=== PATIENT | male | born 1945 ===

== ENCOUNTER 2018-04-11 14:00 | Outpatient (CLI) | payer MEDICARE, BC ==
--- NOTE | 2018-04-11 15:57 | ULT ---
THYROID ULTRASOUND: History: Thyroid nodule noted on a carotid ultrasound. FINDINGS: Real-time imaging of the right and left lobes of the gland were performed. The right lobe measures 1. 4 x 1.9 x 4.5 cm. The left lobe 1.4 x 1.9 x 5 cm. There are several small subcentimeter hypoechoic le sions identified. On the right side there is one that is 3 x 5 mm and another that is 4 x 6 cm, and o n the left a 5 mm nodule. There are probably other small nodules also noted with slight heterogeneity to areas of the gland. IMPRESSION: Tiny bilateral thyroid nodules. POS: YESSY
== END 2018-04-11 14:01 | disposition home or self-care (01) ==
LOC: BICULT 14:00
PROVIDERS: ATTEND Physician Assistant
DX: E04.1 Nontoxic single thyroid nodule (principal); E04.2 Nontoxic multinodular goiter
CPT/HCPCS: 76536

== ENCOUNTER 2020-05-18 13:42 | Inpatient (IN) | payer MEDICARE, BC ==
[2020-05-18] MEDS ORDERED: Nitroglycerin 2% Ointment 1 INCH/1 GM Packet ONE ×2 (14:09→17:20)
[2020-05-18] MEDS ORDERED: Aspirin Chewable 81 MG TAB ONE (14:09)
[2020-05-18 14:26] LABS: #Eosinphils 0.1 thou/uL (0.0-0.7); #Monocytes 0.7 thou/uL (0.11-0.59); #Neutrophils 6.1 thou/uL (1.40-6.50); %Basophils 0.2 % (0.0-1.0); %Lymphocytes 22.7 % (21.0-51.0); %Monocytes 7.4 % (0.0-10.0); %Neutrophils 68.6 % (42.0-75.0); Hemoglobin 14.5 g/dL (14.0-18.0); Mean Corpuscular HGB CONC 34.1 g/dL (32.0-36.0); Mean Corpuscular Volume 94.1 fL (78.0-98.0); Mean Platelet Volume 8.7 fL (7.4-10.4); Platelet Count 195 thou/uL (130-400); RBC Distribution Width 12.5 % (11.5-14.5); Red Blood Cell (RBC) Count 4.54 mill/uL (4.70-6.10); White Blood Cell (WBC) Count 8.8 thou/uL (4.8-10.8)
[2020-05-18 14:36] LABS: ALT (SGPT) 20 U/L (8-55); AST (SGOT) 13 U/L (5-34); Albumin 3.8 g/dL (3.4-4.8); Alkaline Phosphatase 75 U/L (40-110); Anion Gap 12 mmol/L (10-20); BUN (Urea Nitrogen) 14 mg/dL (8.4-25.7); Bilirubin, Total 1.9 mg/dL (0.2-1.2); Calc. Creatinine Clearance 0 mL/min (70-130); Calcium 8.9 mg/dL (7.8-10.44); Carbon Dioxide 32 mmol/L (23-31); Chloride 98 mmol/L (98-107); Globulin 2.9 g/dL (2.4-3.5); Glucose 173 mg/dL (83-110); Protein, Total 6.7 g/dL (5.8-8.1); Sodium 139 mmol/L (136-145)
--- NOTE | 2020-05-18 15:12 | RAD ---
Chest one view HISTORY: Dyspnea. Chest pain. COMPARISON: 03/21/2018. FINDINGS: Cardiac silhouette is magnified and enlarged. Pulmonary vasculature engorged with widesprea d reticulonodular interstitial prominence. No lobar consolidation or evidence of pneumothorax. IMPRESSION : Cardiomegaly with pulmonary vascular congestion. Correlate for CHF.
[2020-05-18] MEDS ORDERED: Potassium Chloride 20 MEQ TAB ONE (15:27)
[2020-05-18] MEDS ORDERED: hydrALAZINE 20 MG/ML VIAL ONE (15:32)
[2020-05-18 15:59] LABS: Bilirubin Negative (Negative); Blood, Urine Negative (Negative); Clarity Clear (Clear); Glucose, Urine (Dipstick) Normal (Negative); Ketone, Urine Negative (Negative); Leukocyte Negative Leu/uL (Negative); Nitrite Negative (Negative); Protein, Urine (Dipstick) Negative (Neg-Trace); Urobilinogen 6 mg/dL (Less than 2)
[2020-05-18] MEDS ORDERED: DOBUTamine 500 mg/250 ml 250 ML ONE (16:17)
[2020-05-18] MEDS ORDERED: Enalaprilat Dihydrate 1.25 MG/ML VIAL SLOW IVP PRN ×2 (16:42→21:53)
[2020-05-18] MEDS ORDERED: Furosemide 20 MG/2 ML VIAL ONE (17:20)
[2020-05-18 17:26] LABS: Troponin I 0.013 ng/mL (< 0.028)
[2020-05-18] MEDS ORDERED: Acetaminophen 325 MG TAB ONE (20:12)
[2020-05-18 20:49] LABS: Troponin I Less than 0.010 ng/mL (< 0.028)
--- NOTE | 2020-05-18 21:51 | HP ---
PRIMARY CARE PHYSICIAN: Dr. Bryon Smith. CHIEF COMPLAINT: Having heavy breathing and can barely sleep. HISTORY OF PRESENT ILLNESS: Mr. Kline is a pleasant 74-year-old gentleman, who has a history of hypertension, also has a history of previous stroke and atrial fibrillation. He says that on Wednesday, he noticed that when he was walking from his car to the office, he was breathing very heavy, and this was abnormal for him. Then, later on that evening, when he was trying to sleep, he says that he woke up several times with difficulty breathing. He says this went off and on throughout the night. He also noted that he was having some hurting around his lower abdomen or diaphragm area, and he says that he took his blood pressure and noticed that it was "sandra-high." He investigated his medications and noted that he had misplaced the lisinopril in the pill bottle containers and had not taken his lisinopril in over 2 weeks. He says that he corrected this mistake and started taking the lisinopril and his Aldactone as well, but noticed that they did not really help his blood pressure much. His blood pressure still remained high. He was still short of breath, and as a result, he came to the emergency room for evaluation. In the ER, he was found to be in atrial fibrillation with a variable heart rate. He also had a chest x-ray done, which showed some cardiomegaly and changes consistent with heart failure, and his proBNP was elevated. For this reason, he is being admitted for further evaluation. The patient sees Dr. Paulino and says that he has had a stress test within the last year and also says he has had an echocardiogram. He believes that his echo was "normal." He denies any leg pain or leg swelling. No nausea, no vomiting, no diaphoresis, but it is to note that he has had a Chelsea fundoplication. REVIEW OF SYSTEMS: All systems were reviewed and are negative except for that mentioned in the history of present illness. PAST MEDICAL HISTORY: Significant for hypertension, previous cerebrovascular accident 20 years ago, atrial fibrillation, kidney stone, gastroesophageal reflux disease. PAST SURGICAL HISTORY: He had bilateral knee surgery. He has had a Chelsea fundoplication in 1996 and a vasectomy. ALLERGIES: NO KNOWN DRUG ALLERGIES. SOCIAL HISTORY: He is , has 2 children. He is a nonsmoker. He says he drinks weekly. He would like to be a full code, but says he would not want to be on a ventilator or "on life support for a long time." FAMILY HISTORY: Father at 98. Brother had some type of liver disease, which he says is X-link inherited. He says he was tested for it, but does not have it. CURRENT MEDICATIONS: Include: 1. Toprol-XL 100 mg daily. 2. Atorvastatin 40 mg daily. 3. Eliquis 5 mg twice a day. 4. Lisinopril 40 mg daily. 5. Spironolactone 25 mg daily. 6. Chlorthalidone 12.5 mg once a day. PHYSICAL EXAMINATION: GENERAL: He is alert and oriented. He does appear to be in some mild distress, more an apprehension. He is well developed, but morbidly obese. VITAL SIGNS: Blood pressure was 156/106. His heart rate is ranging from 40 to about 65, respiratory rate of 16, temperature is 98.1, O2 saturation is 96% on room air. HEENT: Pupils are equal, round, and reactive. Extraocular muscles are intact. Sclerae are anicteric. Throat, there is no erythema, no exudates. NECK: No adenopathy. No bruits. LUNGS: Clear to auscultation. There was no wheezing, no rales, no rhonchi. CARDIOVASCULAR: Heart rate is irregular and it is also slow. I did not appreciate any murmurs or rubs. ABDOMEN: Obese, soft, nontender, and nondistended. Positive for bowel sounds. No rebound. No guarding. EXTREMITIES: He has 1 to 2+ pitting edema bilaterally. No calf tenderness. No joint effusions. NEUROLOGIC: The exam is grossly nonfocal. SKIN AND INTEGUMENT: No skin changes. No rash. LABS AND IMAGING: EKG is by my reading, is in atrial fibrillation, the rate is around 70, there are no ST wave changes. Chest x-ray, he had cardiomegaly as well as bilateral pulmonary vascular congestion by my reading. On his lab results, white blood cell count is 8.8, hemoglobin 14.5, hematocrit is 42.7, platelet count is 195. Sodium 139, potassium 3.0, chloride is 98, CO2 is 32, BUN of 14, creatinine 0.93, glucose is 173. Total bili was 1.9. BNP was 296. Urinalysis is pending. ASSESSMENT AND PLAN: 1. This is a pleasant 74-year-old gentleman, who presents with what appears to be symptomatic bradycardia from atrial fibrillation. He is on Toprol. However, he appears to have symptoms, which are new and signs of overt failure. I have discussed this with the cio on-call, Dr. Ríos, and he has recommended starting him on a dobutamine drip to stabilize his heart rate. We will hold the beta blockers. He states that he has had a recent echo. Therefore, we will not repeat the echo unless it is needed, and further recommendations will be as per the Cardiology team. 2. Hypertension. We will hold off on any medications that will affect the AV node and continue with hydralazine or even Vasotec p.r.n. 3. Gastroesophageal reflux disease. He is status post Chelsea fundoplication. We will place him on a proton pump inhibitor and further recommendations to follow. Job ID: [id number]
[2020-05-18] MEDS ORDERED: Ondansetron ODT 4 MG TAB PO PRN (21:53)
[2020-05-18] MEDS ORDERED: Acetaminophen 325 MG TAB PO PRN (21:53)
[2020-05-18] MEDS ORDERED: Ondansetron PF 4 MG/2 ML Vial IVP PRN (21:53)
--- NOTE | 2020-05-18 21:55 | CON ---
DATE OF CONSULTATION: 05/18/2020 REASON FOR CONSULTATION: Symptomatic bradycardia, atrial fibrillation, diastolic heart failure, acute on chronic. PRIMARY CLINICAL SCIENCE LIAISON: Dr. Joshua Paulino. HISTORY OF PRESENT ILLNESS: Mr. Kline is a very pleasant 74-year-old gentleman who said in the last several days, he has been noticing more shortness of breath and feeling uncomfortable in his abdominal area. He also has "waves" of just something not feeling right "on the monitor." It correlates with some brief episodes of bradycardia and some accelerated idioventricular rhythms. The patient does not have any chest pain or pressure. It feels uncomfortable during these episodes of bradycardia. PAST MEDICAL HISTORY: He has chronic atrial fibrillation, previously normal left ventricular function, normal stress testing in the past. MEDICATIONS: At home are listed as; 1. Chlorthalidone 25 mg a day. 2. Spironolactone 25 mg a day. 3. Lisinopril 40 mg a day. 4. Toprol-XL (metoprolol succinate) 200 mg a day. He has been taking that at night, last dose at 9 p.m. last night. 5. Atorvastatin 40 mg a day. He is also taking Eliquis 5 mg twice a day. Echocardiogram done in 2018 showed an ejection fraction of 55% to 60%, mild tricuspid insufficiency. Stress testing done in 2018 showed no evidence of any ischemia. REVIEW OF SYSTEMS: CONSTITUTIONAL: He is very overweight, but no significant weight changes. VISION: No changes. HEARING: No changes. PULMONARY: No cough or wheezing. GASTROINTESTINAL: He said he has had a fundal plication. He has intermittent nausea, but is unable to vomit. It is a chronic finding for him. SKIN: No rashes. NEUROLOGIC: No unilateral weakness or numbness. PSYCHIATRIC: No unusual depression or anxiety. ALLERGIES: NONE KNOWN. SOCIAL HISTORY: No alcohol or tobacco abuse. PHYSICAL EXAMINATION: GENERAL: This is a pleasant, elderly gentleman, very overweight. Weight in the office was 330 pounds with height 6 feet 1 inch tall. VITAL SIGNS: Blood pressure is 160/80; pulse is usually in the 60s, sometimes drops lower in the 40s occasionally, but usually very briefly. NECK: Neck veins are normal. Carotid, normal upstrokes. LUNGS: Clear. CARDIAC: Irregularly irregular. ABDOMEN: Obese, nontender. EXTREMITIES: No clubbing or cyanosis. There is hsutolga-ja-brjolg edema. PERTINENT LABORATORY DATA: Potassium is 3.0. BNP is 296.8. EKG showed atrial fibrillation. No acute changes. Troponin 0.013. Chest x-ray shows pulmonary vascular congestion. ASSESSMENT: 1. Diastolic heart failure, acute on chronic. 2. Atrial fibrillation with a slow ventricular response. 3. Accelerated idioventricular rhythm, looks most like an escape rhythm. 4. Mild hypokalemia. 5. Hypertension. PLAN: 1. Begin intravenous dobutamine. 2. Stop metoprolol, it has a very long half-life, therefore probably going to be down tomorrow morning if the levels are significantly lower. 3. I agree with IV Vasotec to help with blood pressure. 4. Intravenous diuretic. 5. Increase spironolactone. We will follow with you. Job ID: [id number]
[2020-05-18] MEDS ORDERED: Apixaban 5 MG TAB PO SCH (22:15)
[2020-05-18] MEDS ORDERED: Atorvastatin Calcium 40 MG TAB PO SCH (22:15)
[2020-05-18] MEDS ORDERED: Spironolactone 25 MG TAB PO SCH (23:30)
[2020-05-19 03:23] LABS: #Eosinphils 0.1 thou/uL (0.0-0.7); #Lymphocytes 1.8 thou/uL (1.20-3.40); #Monocytes 1.1 thou/uL (0.11-0.59); #Neutrophils 6.9 thou/uL (1.40-6.50); %Basophils 0.3 % (0.0-1.0); %Eosinophils 0.6 % (0.0-10.0); %Monocytes 10.8 % (0.0-10.0); %Neutrophils 70.4 % (42.0-75.0); Hemoglobin 13.6 g/dL (14.0-18.0); Mean Corpuscular HGB CONC 33.6 g/dL (32.0-36.0); Mean Corpuscular Hemoglobin 31.2 pg (27.0-31.0); Mean Platelet Volume 8.3 fL (7.4-10.4); Platelet Count 198 thou/uL (130-400); RBC Distribution Width 12.5 % (11.5-14.5); Red Blood Cell (RBC) Count 4.36 mill/uL (4.70-6.10); White Blood Cell (WBC) Count 9.8 thou/uL (4.8-10.8)
[2020-05-19 03:41] LABS: Anion Gap 13 mmol/L (10-20); BUN (Urea Nitrogen) 13 mg/dL (8.4-25.7); Calc. Creatinine Clearance 0 mL/min (70-130); Calcium 8.8 mg/dL (7.8-10.44); Carbon Dioxide 31 mmol/L (23-31); Chloride 97 mmol/L (98-107); Glucose 124 mg/dL (83-110); Sodium 138 mmol/L (136-145)
[2020-05-19 03:54] LABS: Potassium 2.6 mmol/L (3.5-5.1)
[2020-05-19] MEDS ORDERED: Potassium Chloride 20 MEQ TAB PO SCH ×2 (04:30→12:00)
[2020-05-19] MEDS ORDERED: Potassium Chloride 20 MEQ TAB ONE ×2 (04:49→13:26)
[2020-05-19] MEDS ORDERED: DOBUTamine 500 mg/250 ml 250 ML ONE (04:56)
[2020-05-19] MEDS ORDERED: Potassium Chloride 40 MEQ in Sodium Chloride 0.9% 250 ML 250 ML IVPB SCH (08:00)
[2020-05-19 08:22] LABS: SARS-CoV-2 MS2 Positive; SARS-CoV-2 N Gene Negative; SARS-CoV-2 S Gene Negative; SARS-CoV-2 by NAA Not Detected (NotDetected); SARS-CoV-2 orf1ab Negative
[2020-05-19] MEDS ORDERED: Pantoprazole 40 MG VIAL ONE (08:40)
[2020-05-19] MEDS ORDERED: Pantoprazole 40 MG VIAL IVP SCH (09:00)
[2020-05-19] MEDS ORDERED: Magnesium 2 GM/50 ML 2 GM in Premix Bag 1 BAG IVPB SCH (09:45)
[2020-05-19] MEDS ORDERED: Magnesium 2 GM/50 ML BAG (IN WATER) ONE (10:21)
[2020-05-19] MEDS: Apixaban 5 MG TAB PO SCH ×2 (10:24→21:20)
--- NOTE | 2020-05-19 10:34 | PDOC.HOSPP ---
- Subjective Encounter Date: 05/19/20 Encounter Time: 10:28 Subjective: Mr. Kline was seen today in follow-up of bradycardia. He says he feels much better. He denies chest pain or upper abdominal discomfort. - Objective Result Diagrams: 05/19/20 03:12 05/19/20 03:12 Hospitalist ROS - Medication Medications: Active Medications Generic Name Dose Route Start Last Admin Trade Name Americoq PRN Reason Stop Dose Admin Apixaban 5 mg 05/19/20 09:00 05/19/20 10:24 Apixaban 5 Mg Tab PO 5 mg BID NIKKO Administration Potassium Chloride 40 meq/ 270 mls @ 67.5 mls/hr 05/19/20 08:00 05/19/20 10:15 Sodium Chloride IVPB 05/19/20 12:00 Not Given NOW NIKKO Magnesium Sulfate 2 gm/ Device 50 mls @ 100 mls/hr 05/19/20 09:45 05/19/20 10:24 IVPB 05/19/20 13:00 50 mls NOW NIKKO Administration - Exam Eye: PERRL, anicteric sclera Heart: no murmur, no gallops, no rubs, normal peripheral pulses, irregular Respiratory: CTAB, no wheezes, no rales, no ronchi, normal chest expansion, no tachypnea Gastrointestinal: soft, non-tender, non-distended, normal bowel sounds Extremities: no cyanosis, no edema Hosp A/P (1) Bradycardia Code(s): R00.1 - BRADYCARDIA, UNSPECIFIED Status: Acute (2) Hypertension Code(s): I10 - ESSENTIAL (PRIMARY) HYPERTENSION Status: Chronic (3) Obesity Code(s): E66.9 - OBESITY, UNSPECIFIED Status: Chronic (4) GERD (gastroesophageal reflux disease) Code(s): K21.9 - GASTRO-ESOPHAGEAL REFLUX DISEASE WITHOUT ESOPHAGITIS Status: Chronic - Plan * Symptomatic bradycardia- Mr. Kline is feeling better on the Dobutamine drip * Continue to hold Metoprolol, and await recommendations from Cardiology * AFIB- heart rate is better- continue Eliquis for DVT prophylaxis * Hypokalemia- Likely from renal losses- will replace- consider re-starting Losartan and spironolactone * Hypomagnesemia- replace * HTN- blood pressure is a bit better- continue Vasotec as needed-
[2020-05-19] MEDS ORDERED: Furosemide 40 MG/4 ML VIAL ONE (13:03)
[2020-05-19] MEDS ORDERED: Spironolactone 25 MG TAB PO SCH (13:15)
--- NOTE | 2020-05-19 13:51 | PRG ---
DATE OF SERVICE: 05/19/2020 SUBJECTIVE: Mr. Kline is feeling better today. He is still on dobutamine 5 mcg/kg/minute. We did decrease the dobutamine to 2.5 mcg/kg/minute and the heart rate dropped into the mid 50s and sometimes somewhat lower. OBJECTIVE: LUNGS: Clear. CARDIAC: Irregularly irregular. ABDOMEN: Soft, nontender. EXTREMITIES: Still moderate edema. LABORATORY DATA: Potassium is 2.6, this morning magnesium is 1.4. He has received potassium and magnesium. ASSESSMENT: 1. Diastolic heart failure, improving. 2. Atrial fibrillation with slow ventricular response, improving, but continues. PLAN: 1. Metoprolol succinate was stopped, but it has a very long half-life 24 hours. Therefore, probably will be tomorrow until the most of that medicine has actually gone. 2. Replete potassium. 3. Replete magnesium. 4. Probably will be able to wean off dobutamine tomorrow. Dr. Paulino will see the patient tomorrow. Also get spironolactone today to help with potassium and diuresis. He will get one dose of IV Lasix today. Job ID: [id number]
[2020-05-19 15:23] VITALS: BMI 41.9
[2020-05-19] MEDS ORDERED: Lisinopril 20 MG TAB PO SCH (16:00)
[2020-05-19] MEDS: DOBUTamine 500 mg/250 ml 500 MG in Premix Bag 1 BAG IVPB SCH (19:55)
[2020-05-19] MEDS: Escitalopram Oxalate 20 mg Tablet PO SCH (21:20)
[2020-05-19] MEDS: Atorvastatin Calcium 40 MG TAB PO SCH (21:20)
[2020-05-20 04:47] LABS: #Eosinphils 0.1 thou/uL (0.0-0.7); #Lymphocytes 1.8 thou/uL (1.20-3.40); #Monocytes 1.1 thou/uL (0.11-0.59); #Neutrophils 6.5 thou/uL (1.40-6.50); %Basophils 0.2 % (0.0-1.0); %Eosinophils 0.9 % (0.0-10.0); %Neutrophils 67.9 % (42.0-75.0); Hemoglobin 14.1 g/dL (14.0-18.0); Mean Corpuscular HGB CONC 31.9 g/dL (32.0-36.0); Mean Corpuscular Hemoglobin 29.8 pg (27.0-31.0); Mean Corpuscular Volume 93.5 fL (78.0-98.0); Mean Platelet Volume 8.3 fL (7.4-10.4); Platelet Count 218 thou/uL (130-400); RBC Distribution Width 12.7 % (11.5-14.5); Red Blood Cell (RBC) Count 4.75 mill/uL (4.70-6.10); White Blood Cell (WBC) Count 9.5 thou/uL (4.8-10.8)
[2020-05-20 05:06] LABS: Anion Gap 14 mmol/L (10-20); BUN (Urea Nitrogen) 10 mg/dL (8.4-25.7); Calc. Creatinine Clearance 161 mL/min (70-130); Calcium 8.8 mg/dL (7.8-10.44); Carbon Dioxide 30 mmol/L (23-31); Chloride 98 mmol/L (98-107); Glucose 115 mg/dL (83-110); Sodium 139 mmol/L (136-145)
[2020-05-20 05:09] LABS: Potassium 2.5 mmol/L (3.5-5.1)
[2020-05-20] MEDS ORDERED: Electrolyte Replacement Protocol FS PRN (05:25)
[2020-05-20] MEDS: Potassium Chloride 20 MEQ in Premix Bag 1 BAG IVPB SCH ×4 (06:10→12:50)
[2020-05-20] MEDS ORDERED: Magnesium 2 GM/50 ML 2 GM in Premix Bag 1 BAG IVPB SCH (06:15)
[2020-05-20] MEDS: Apixaban 5 MG TAB PO SCH ×2 (08:32→20:33)
[2020-05-20] MEDS: Lisinopril 20 MG TAB PO SCH (08:32)
[2020-05-20] MEDS: Furosemide 40 MG TAB PO SCH ×2 (08:33→13:17)
[2020-05-20] MEDS: Spironolactone 25 MG TAB PO SCH (08:33)
[2020-05-20] MEDS: DOBUTamine 500 mg/250 ml 500 MG in Premix Bag 1 BAG IVPB SCH (08:35)
[2020-05-20] MEDS ORDERED: Lisinopril 20 MG TAB PO SCH (09:00)
[2020-05-20] MEDS ORDERED: DOBUTamine 500 mg/250 ml 500 MG in Premix Bag 1 BAG IVPB SCH (09:08)
--- NOTE | 2020-05-20 09:38 | PDOC.HOSPP ---
- Subjective Encounter Date: 05/20/20 Encounter Time: 09:36 Subjective: Mr. Kline was seen today in follow-up of Bradycardia and AFIB. He does not have any complaints this morning. - Objective Vital Signs & Weight: Vital Signs (12 hours) Temp Pulse Resp BP Pulse Ox 05/20/20 07:35 98.2 F 103 H 18 164/95 H 92 L 05/20/20 06:05 99.1 F 86 18 166/81 H 93 L 05/20/20 00:00 80 162/79 H Weight Weight 313 lb 5 oz I&O: 05/19/20 05/20/20 05/21/20 06:59 06:59 06:59 Intake Total 500 Output Total 2200 Balance -1700 Result Diagrams: 05/20/20 04:16 05/20/20 04:16 Hospitalist ROS - Medication Medications: Active Medications Generic Name Dose Route Start Last Admin Trade Name Freq PRN Reason Stop Dose Admin Apixaban 5 mg 05/19/20 09:00 05/20/20 08:32 Apixaban 5 Mg Tab PO 5 mg BID NIKKO Administration Atorvastatin Calcium 40 mg 05/19/20 21:00 05/19/20 21:20 Atorvastatin Calcium 40 Mg Tab PO 40 mg HS NIKKO Administration Escitalopram Oxalate 20 mg 05/19/20 21:00 05/19/20 21:20 Escitalopram Oxalate 20 Mg Tablet PO 20 mg HS NIKKO Administration Furosemide 40 mg 05/20/20 09:00 05/20/20 08:33 Furosemide 40 Mg Tab PO 40 mg 0900,1400 NIKKO Administration Potassium Chloride 20 meq/ 100 mls @ 50 mls/hr 05/20/20 05:30 05/20/20 08:34 Device IVPB 05/20/20 13:29 100 mls Q2H NIKKO Administration Lisinopril 40 mg 05/20/20 09:00 05/20/20 08:32 Lisinopril 20 Mg Tab PO 40 mg DAILY NIKKO Administration Sodium Chloride 10 ml 05/20/20 09:00 05/20/20 08:35 Flush - Normal Saline 10 Ml Syringe IVF 10 ml Q12HR NIKKO Administration Spironolactone 50 mg 05/20/20 08:00 05/20/20 08:33 Spironolactone 25 Mg Tab PO 50 mg QAM-WM NIKKO Administration - Exam Eye: PERRL, anicteric sclera Heart: RRR, no murmur, no gallops, no rubs, normal peripheral pulses Heart - other findings: occsional irregular heart rhythym Respiratory: CTAB, no wheezes, no rales, no ronchi Gastrointestinal: soft, non-tender, non-distended, normal bowel sounds, no palpable masses, no hepatomegaly Extremities: no cyanosis, 1+ LE edema (lessening) Hosp A/P (1) Bradycardia Code(s): R00.1 - BRADYCARDIA, UNSPECIFIED Status: Acute (2) Hypertension Code(s): I10 - ESSENTIAL (PRIMARY) HYPERTENSION Status: Chronic (3) Obesity Code(s): E66.9 - OBESITY, UNSPECIFIED Status: Chronic (4) GERD (gastroesophageal reflux disease) Code(s): K21.9 - GASTRO-ESOPHAGEAL REFLUX DISEASE WITHOUT ESOPHAGITIS Status: Chronic - Plan * Symptomatic bradycardia- Continue to wean the dobutamine drip as tolerated * Continue to hold Metoprolol, * AFIB- heart rate is better- continue Eliquis for DVT prophylaxis * Hypokalemia- Likely from renal losses- continue to replace * Hypomagnesemia- continue to replace * HTN- blood pressure is better
--- NOTE | 2020-05-20 10:40 | PDOC.CPN ---
- Subjective Date: 05/20/20 Time: 08:40 Interval history: Mr. Kline has no complaints. Potassium and mag were both low today and are being repleted. HR stable with some AIVR overnight. Patient says he's ila checked for sleep apnea three times in the past. - Review of Systems General: denies: fever/chills, weight/appetite/sleep changes, night sweats, fatigue Respiratory: denies: cough, congestion, shortness of breath, exercise into lerance Cardiovascular: denies: chest pain, palpitation, edema, paroxysmal nocturnal dyspnea, orthopnea Gastrointestinal: denies: nausea, vomiting, diarrhea, constipation, abd pain, GI bleeding Musculoskeletal: denies: pain, tenderness, stiffness, swelling, arthritis/arthralgias Neurological: denies: numbness, syncope, seizure, weakness - Objective Allergies/Adverse Reactions: Allergies Allergy/AdvReac Type Severity Reaction Status Date / Time No Known Allergies Allergy Unverified 05/18/20 16:52 Visit Medications: Current Medications Acetaminophen (Acetaminophen 325 Mg Tab) 650 mg PO Q4H PRN PRN Reason: Headache/Fever/Mild Pain (1-3) Apixaban (Apixaban 5 Mg Tab) 5 mg PO BID [facility] Last Admin: 05/20/20 08:32 Dose: 5 mg Documented by: Atorvastatin Calcium (Atorvastatin Calcium 40 Mg Tab) 40 mg PO [facility] Last Admin: 05/19/20 21:20 Dose: 40 mg Documented by: Enalaprilat (Enalaprilat Dihydrate 1.25 Mg/Ml Vial) 1.25 mg SLOW IVP Q6H PRN PRN Reason: Blood Pressure Enalaprilat (Enalaprilat Dihydrate 1.25 Mg/Ml Vial) 1.25 mg SLOW IVP Q6HR PRN PRN Reason: SBP Greater Than 170 Escitalopram Oxalate (Escitalopram Oxalate 20 Mg Tablet) 20 mg PO HS [facility] Last Admin: 05/19/20 21:20 Dose: 20 mg Documented by: Furosemide (Furosemide 40 Mg Tab) 40 mg PO 0900,1400 [facility] Last Admin: 05/20/20 08:33 Dose: 40 mg Documented by: Potassium Chloride 20 meq/ (Device) 100 mls @ 50 mls/hr IVPB Q2H [facility] Stop: 05/20/20 13:29 Last Admin: 05/20/20 08:34 Dose: 100 mls Documented by: Dobutamine HCl/Dextrose 500 mg (/ Device) 250 mls @ 10.818 mls/hr IVPB INF [facility]; Protocol Lisinopril (Lisinopril 20 Mg Tab) 40 mg PO DAILY [facility] Last Admin: 05/20/20 08:32 Dose: 40 mg Documented by: Miscellaneous Medication (Electrolyte Replacement Protocol) 1 each FS PRN PRN PRN Reason: ELECTROLYTES Ondansetron HCl (Ondansetron Pf 4 Mg/2 Ml Vial) 4 mg IVP Q6H PRN PRN Reason: Nausea/Vomiting Ondansetron HCl (Ondansetron Odt 4 Mg Tab) 4 mg PO Q6H PRN PRN Reason: Nausea/Vomiting Sodium Chloride (Flush - Normal Saline 10 Ml Syringe) 10 ml IVF Q12HR [facility] Last Admin: 05/20/20 08:35 Dose: 10 ml Documented by: Sodium Chloride (Flush - Normal Saline 10 Ml Syringe) 10 ml IVF PRN PRN PRN Reason: Saline Flush Spironolactone (Spironolactone 25 Mg Tab) 50 mg PO QAM-WM [facility] Last Admin: 05/20/20 08:33 Dose: 50 mg Documented by: Vital Signs & Weight: Vital Signs Temp Pulse Resp BP Pulse Ox 05/20/20 07:35 98.2 F 103 H 18 164/95 H 92 L 05/20/20 06:05 99.1 F 86 18 166/81 H 93 L 05/20/20 00:00 80 162/79 H Weight 313 lb 5 oz - Physical Exam General: alert & oriented x3, appears well, no apparent distress HEENT: mucus membranes moist Neck: supple neck Cardiac: other (IRR IRR) Lungs: clear to auscultation Neuro: grossly intact Abdomen: soft Skin: clear Musculoskeletal: no pain - Labs Result Diagrams: 05/20/20 04:16 05/20/20 04:16 Troponin/CKMB Troponin I Less than 0.010 ng/mL (< 0.028) 05/18/20 20:18 - Assessment/Plan Assessment/Plan: 1. Bradycardia 2. Hypokalemia 3. Hypomagnesium 4. HTN Add Norvasc for HTN. Continue to replinish electrolytes. Consider epleronone if potassium continues to stay low.
[2020-05-20] MEDS: Amlodipine 5 MG TAB PO SCH (11:37)
[2020-05-20 13:27] LABS: Anion Gap 14 mmol/L (10-20); BUN (Urea Nitrogen) 12 mg/dL (8.4-25.7); Calc. Creatinine Clearance 143 mL/min (70-130); Carbon Dioxide 30 mmol/L (23-31); Chloride 97 mmol/L (98-107); Glucose 143 mg/dL (83-110); Magnesium 1.7 mg/dL (1.6-2.6); Sodium 138 mmol/L (136-145)
[2020-05-20] MEDS: Escitalopram Oxalate 20 mg Tablet PO SCH (20:33)
[2020-05-20] MEDS: Atorvastatin Calcium 40 MG TAB PO SCH (20:33)
[2020-05-21 04:58] LABS: Anion Gap 15 mmol/L (10-20); BUN (Urea Nitrogen) 12 mg/dL (8.4-25.7); Calc. Creatinine Clearance 157 mL/min (70-130); Calcium 8.9 mg/dL (7.8-10.44); Carbon Dioxide 29 mmol/L (23-31); Chloride 97 mmol/L (98-107); Glucose 112 mg/dL (83-110); Potassium 3.2 mmol/L (3.5-5.1); Sodium 138 mmol/L (136-145)
[2020-05-21] MEDS ORDERED: Potassium Chloride 20 MEQ TAB PO SCH (05:45)
[2020-05-21] MEDS: Apixaban 5 MG TAB PO SCH ×2 (07:42→20:11)
[2020-05-21] MEDS: Lisinopril 20 MG TAB PO SCH (07:42)
[2020-05-21] MEDS: Amlodipine 5 MG TAB PO SCH (07:42)
[2020-05-21] MEDS: Furosemide 40 MG TAB PO SCH ×2 (07:42→14:48)
[2020-05-21] MEDS: Spironolactone 25 MG TAB PO SCH (07:42)
--- NOTE | 2020-05-21 08:43 | PDOC.HOSPP ---
- Subjective Encounter Date: 05/21/20 Encounter Time: 08:41 Subjective: Mr. Kline was seen today in follow-up of symptomatic bradycardia. He does not have any new complaints. He denies any chest pain. - Objective Vital Signs & Weight: Vital Signs (12 hours) Temp Pulse Resp BP Pulse Ox 05/21/20 07:42 65 05/21/20 07:38 98.1 F 65 16 145/87 H 95 05/21/20 03:47 98.0 F 70 20 136/93 H 95 05/20/20 23:38 70 150/90 H Weight Weight 313 lb 5 oz I&O: 05/20/20 05/21/20 05/22/20 06:59 06:59 06:59 Intake Total 500 1900 Output Total 2200 1925 Balance -1699 Result Diagrams: 05/20/20 04:16 05/21/20 03:55 Hospitalist ROS - Medication Medications: Active Medications Generic Name Dose Route Start Last Admin Trade Name Freq PRN Reason Stop Dose Admin Amlodipine Besylate 5 mg 05/20/20 09:00 05/21/20 07:42 Amlodipine 5 Mg Tab PO 5 mg DAILY NIKKO Administration Apixaban 5 mg 05/19/20 09:00 05/21/20 07:42 Apixaban 5 Mg Tab PO 5 mg BID NIKKO Administration Atorvastatin Calcium 40 mg 05/19/20 21:00 05/20/20 20:33 Atorvastatin Calcium 40 Mg Tab PO 40 mg HS NIKKO Administration Enalaprilat 1.25 mg 05/18/20 16:42 05/20/20 16:33 Enalaprilat Dihydrate 1.25 Mg/Ml Vial SLOW IVP 1.25 mg Q6H PRN Administration Blood Pressure Escitalopram Oxalate 20 mg 05/19/20 21:00 05/20/20 20:33 Escitalopram Oxalate 20 Mg Tablet PO 20 mg HS NIKKO Administration Furosemide 40 mg 05/20/20 09:00 05/21/20 07:42 Furosemide 40 Mg Tab PO 40 mg 0900,1400 NIKKO Administration Lisinopril 40 mg 05/20/20 09:00 05/21/20 07:42 Lisinopril 20 Mg Tab PO 40 mg DAILY NIKKO Administration Sodium Chloride 10 ml 05/20/20 09:00 05/21/20 07:43 Flush - Normal Saline 10 Ml Syringe IVF 10 ml Q12HR NIKKO Administration Spironolactone 50 mg 05/20/20 08:00 05/21/20 07:42 Spironolactone 25 Mg Tab PO 50 mg QAM-WM NIKKO Administration - Exam Eye: PERRL, anicteric sclera Heart: RRR, no murmur, no gallops, no rubs, normal peripheral pulses Respiratory: CTAB, no wheezes, no rales, no ronchi, normal chest expansion Gastrointestinal: soft, non-tender, non-distended, normal bowel sounds, no palpable masses Extremities: no cyanosis, 1+ LE edema Hosp A/P (1) Bradycardia Code(s): R00.1 - BRADYCARDIA, UNSPECIFIED Status: Acute (2) Hypertension Code(s): I10 - ESSENTIAL (PRIMARY) HYPERTENSION Status: Chronic (3) Obesity Code(s): E66.9 - OBESITY, UNSPECIFIED Status: Chronic (4) GERD (gastroesophageal reflux disease) Code(s): K21.9 - GASTRO-ESOPHAGEAL REFLUX DISEASE WITHOUT ESOPHAGITIS Status: Chronic - Plan * Symptomatic bradycardia- Continue to wean the dobutamine drip as tolerated * Metoprolol is on hold * AFIB- heart rate is better- continue Eliquis for DVT prophylaxis * Hypokalemia- Likely from renal losses- continue to replace * Hypomagnesemia- improved * HTN- blood pressure is trending down * Further recommendations as per Cardiology
--- NOTE | 2020-05-21 18:17 | PDOC.CPN ---
- Subjective Date: 05/21/20 Time: 12:15 Interval history: Mr. Kline is doing well. He has no complaints. Dobutamine stopped this morning and HR has stayed stable. - Review of Systems General: denies: fever/chills, weight/appetite/sleep changes, night sweats, fatigue Respiratory: denies: cough, congestion, shortness of breath, exercise intolerance Cardiovascular: denies: chest pain, palpitation, edema, paroxysmal nocturnal dyspnea, orthopnea Gastrointestinal: denies: nausea, vomiting, diarrhea, constipation, abd pain, GI bleeding Musculoskeletal: denies: pain, tenderness, stiffness, swelling, arthritis/arthralgias Neurological: denies: numbness, syncope, seizure, weakness - Objective Allergies/Adverse Reactions: Allergies Allergy/AdvReac Type Severity Reaction Status Date / Time No Known Allergies Allergy Unverified 05/18/20 16:52 Visit Medications: Current Medications Acetaminophen (Acetaminophen 325 Mg Tab) 650 mg PO Q4H PRN PRN Reason: Headache/Fever/Mild Pain (1-3) Amlodipine Besylate (Amlodipine 5 Mg Tab) 5 mg PO DAILY [facility] Last Admin: 05/21/20 07:42 Dose: 5 mg Documented by: Apixaban (Apixaban 5 Mg Tab) 5 mg PO BID [facility] Last Admin: 05/21/20 07:42 Dose: 5 mg Documented by: Atorvastatin Calcium (Atorvastatin Calcium 40 Mg Tab) 40 mg PO HS [facility] Last Admin: 05/20/20 20:33 Dose: 40 mg Documented by: Enalaprilat (Enalaprilat Dihydrate 1.25 Mg/Ml Vial) 1.25 mg SLOW IVP Q6H PRN PRN Reason: Blood Pressure Last Admin: 05/20/20 16:33 Dose: 1.25 mg Documented by: Enalaprilat (Enalaprilat Dihydrate 1.25 Mg/Ml Vial) 1.25 mg SLOW IVP Q6HR PRN PRN Reason: SBP Greater Than 170 Escitalopram Oxalate (Escitalopram Oxalate 20 Mg Tablet) 20 mg PO HS [facility] Last Admin: 05/20/20 20:33 Dose: 20 mg Documented by: Furosemide (Furosemide 40 Mg Tab) 40 mg PO 0900,1400 [facility] Last Admin: 05/21/20 14:48 Dose: 40 mg Documented by: Lisinopril (Lisinopril 20 Mg Tab) 40 mg PO DAILY [facility] Last Admin: 05/21/20 07:42 Dose: 40 mg Documented by: Miscellaneous Medication (Electrolyte Replacement Protocol) 1 each FS PRN PRN PRN Reason: ELECTROLYTES Ondansetron HCl (Ondansetron Pf 4 Mg/2 Ml Vial) 4 mg IVP Q6H PRN PRN Reason: Nausea/Vomiting Ondansetron HCl (Ondansetron Odt 4 Mg Tab) 4 mg PO Q6H PRN PRN Reason: Nausea/Vomiting Sodium Chloride (Flush - Normal Saline 10 Ml Syringe) 10 ml IVF Q12HR [facility] Last Admin: 05/21/20 07:43 Dose: 10 ml Documented by: Sodium Chloride (Flush - Normal Saline 10 Ml Syringe) 10 ml IVF PRN PRN PRN Reason: Saline Flush Spironolactone (Spironolactone 25 Mg Tab) 50 mg PO QAM-WM [facility] Last Admin: 05/21/20 07:42 Dose: 50 mg Documented by: Vital Signs & Weight: Vital Signs Temp Pulse Resp BP Pulse Ox 05/21/20 15:47 97.6 F 89 19 143/108 H 95 05/21/20 12:00 98.6 F 84 18 148/91 H 93 L 05/21/20 07:42 65 05/21/20 07:38 98.1 F 65 16 145/87 H 95 Weight 313 lb 5 oz - Physical Exam General: alert & oriented x3, appears well, no apparent distress HEENT: mucus membranes moist Neck: supple neck Cardiac: other (IRR IRR) Lungs: clear to auscultation, normal breath sounds Abdomen: soft, non-tender Extremities: no cyanosis, no edema Skin: clear Musculoskeletal: no pain - Labs Result Diagrams: 05/20/20 04:16 05/21/20 03:55 Troponin/CKMB Troponin I Less than 0.010 ng/mL (< 0.028) 05/18/20 20:18 - Assessment/Plan Assessment/Plan: 1. Bradycardia 2. Hypokalemia 3. Hypomagnesium 4. HTN 5. AF BP stable. Heart rhythm stable. Ok for discharge tomorrow if potassium and magnesium stable.
[2020-05-21] MEDS: Escitalopram Oxalate 20 mg Tablet PO SCH (20:11)
[2020-05-21] MEDS: Atorvastatin Calcium 40 MG TAB PO SCH (20:11)
[2020-05-22 04:06] VITALS: TEMP 98.7
[2020-05-22 07:47] VITALS: BP 155/105
[2020-05-22] MEDS: Furosemide 40 MG TAB PO SCH (08:34)
[2020-05-22] MEDS: Lisinopril 20 MG TAB PO SCH (08:34)
[2020-05-22] MEDS: Apixaban 5 MG TAB PO SCH (08:34)
[2020-05-22] MEDS: Spironolactone 25 MG TAB PO SCH (08:35)
[2020-05-22] MEDS ORDERED: Metoprolol Tartrate 25 MG TAB PO SCH (09:00)
[2020-05-22] MEDS ORDERED: Amlodipine 10 MG TAB PO SCH (09:00)
[2020-05-22] MEDS ORDERED: Amlodipine 5 MG TAB PO SCH (09:00)
--- NOTE | 2020-05-22 09:28 | PDOC.CPN ---
- Subjective Date: 05/22/20 Time: 08:20 Interval history: No overnight events. No complaints. - Review of Systems General: denies: fever/chills, weight/appetite/sleep changes, night sweats, fatigue Respiratory: denies: cough, congestion, shortness of breath, exercise intolerance Cardiovascular: denies: chest pain, palpitation, edema, paroxysmal nocturnal dyspnea, orthopnea Gastrointestinal: denies: nausea, vomiting, diarrhea, constipation, abd pain, GI bleeding Musculoskeletal: denies: pain, tenderness, stiffness, swelling, arthritis/arthralgias Neurological: denies: numbness, syncope, seizure, weakness - Objective Allergies/Adverse Reactions: Allergies Allergy/AdvReac Type Severity Reaction Status Date / Time No Known Allergies Allergy Unverified 05/18/20 16:52 Visit Medications: Current Medications Acetaminophen (Acetaminophen 325 Mg Tab) 650 mg PO Q4H PRN PRN Reason: Headache/Fever/Mild Pain (1-3) Amlodipine Besylate (Amlodipine 10 Mg Tab) 10 mg PO DAILY [facility] Last Admin: 05/22/20 09:13 Dose: 10 mg Documented by: Apixaban (Apixaban 5 Mg Tab) 5 mg PO BID [facility] Last Admin: 05/22/20 08:34 Dose: 5 mg Documented by: Atorvastatin Calcium (Atorvastatin Calcium 40 Mg Tab) 40 mg PO HS [facility] Last Admin: 05/21/20 20:11 Dose: 40 mg Documented by: Enalaprilat (Enalaprilat Dihydrate 1.25 Mg/Ml Vial) 1.25 mg SLOW IVP Q6H PRN PRN Reason: Blood Pressure Last Admin: 05/20/20 16:33 Dose: 1.25 mg Documented by: Enalaprilat (Enalaprilat Dihydrate 1.25 Mg/Ml Vial) 1.25 mg SLOW IVP Q6HR PRN PRN Reason: SBP Greater Than 170 Escitalopram Oxalate (Escitalopram Oxalate 20 Mg Tablet) 20 mg PO HS [facility] Last Admin: 05/21/20 20:11 Dose: 20 mg Documented by: Furosemide (Furosemide 40 Mg Tab) 40 mg PO 0900,1400 [facility] Last Admin: 05/22/20 08:34 Dose: 40 mg Documented by: Lisinopril (Lisinopril 20 Mg Tab) 40 mg PO DAILY [facility] Last Admin: 05/22/20 08:34 Dose: 40 mg Documented by: Metoprolol Succinate (Metoprolol Succinate Xl 25 Mg Tab) 25 mg PO 2100 [facility] Miscellaneous Medication (Electrolyte Replacement Protocol) 1 each FS PRN PRN PRN Reason: ELECTROLYTES Ondansetron HCl (Ondansetron Pf 4 Mg/2 Ml Vial) 4 mg IVP Q6H PRN PRN Reason: Nausea/Vomiting Ondansetron HCl (Ondansetron Odt 4 Mg Tab) 4 mg PO Q6H PRN PRN Reason: Nausea/Vomiting Sodium Chloride (Flush - Normal Saline 10 Ml Syringe) 10 ml IVF Q12HR [facility] Last Admin: 05/22/20 08:35 Dose: 10 ml Documented by: Sodium Chloride (Flush - Normal Saline 10 Ml Syringe) 10 ml IVF PRN PRN PRN Reason: Saline Flush Spironolactone (Spironolactone 25 Mg Tab) 50 mg PO QAM-WM [facility] Last Admin: 05/22/20 08:35 Dose: 50 mg Documented by: Vital Signs & Weight: Vital Signs Temp Pulse Resp BP Pulse Ox 05/22/20 07:44 98.7 F 71 19 155/105 H 92 L 05/22/20 04:00 98.7 F 81 18 131/92 H 90 L 05/22/20 00:00 88 143/103 H Weight 313 lb 5 oz - Physical Exam General: alert & oriented x3, appears well, no apparent distress HEENT: mucus membranes moist Neck: supple neck Cardiac: other (IRR iRR) Lungs: clear to auscultation, no wheeze, rales, rhonchi Abdomen: soft Extremities: no edema Skin: clear - Labs Result Diagrams: 05/20/20 04:16 05/21/20 03:55 Troponin/CKMB Troponin I Less than 0.010 ng/mL (< 0.028) 05/18/20 20:18 - Assessment/Plan Assessment/Plan: 1. Bradycardia 2. Hypokalemia 3. Hypomagnesium 4. HTN 5. AF Will increase norvasc to 10mg. low dose bblocker added by RG this morning. Change to long-acting. Ok for discharge from my standpoint. Will place EVR prior to d/c and f/u in 1-2 weeks in office. Instructed patient importance of following-up with Dr. Frey in the next week to recheck potassium and mag levels.
--- NOTE | 2020-05-22 10:46 | PDOC.DS.DS ---
Provider - Provider Date of Admission: 05/18/20 17:32 Date of Discharge: 05/22/20 Admitting Provider: Ej Matta MD Primary Care Physician: Isaac Frey MD Course - Hospital Course Hospital Course: The patient is a 74-year-old male with past medical history of diastolic heart failure, chronic atrial fibrillation who was admitted to the hospital for shortness of breath due to exacerbation of his heart failure associated with atrial fibrillation with slow ventricular response. Cardiology service were consulted and the patient was started on dobutamine drip and his beta-po was held for the first 24 hours. This has led to improvement in patient's bradycardia. Dobutamine drip was successfully discontinued and a lower dose of beta-po was instated. The patient was diuresed during his hospital stay and electrolytes were replaced. At this time he is stable for discharge from cardiology standpoint with outpatient follow-up in 1 to 2 weeks. Resuscitation Status: 05/18/20 16:27 Resuscitation Status Routine Resuscitation Status: FULL: Full Resuscitation - Labs Lab Results: 05/20/20 04:16 05/21/20 03:55 Abnormal Lab Results - Last 48 hrs 05/20/20 12:51: Potassium 3.0 L, Chloride 97 L 05/21/20 03:55: Potassium 3.2 L, Chloride 97 L - Physical Exam Vitals: Vital Signs (12 hours) Temp Pulse Resp BP Pulse Ox 05/22/20 07:44 98.7 F 71 19 155/105 H 92 L 05/22/20 04:00 98.7 F 81 18 131/92 H 90 L 05/22/20 00:00 88 143/103 H Weight Weight 313 lb 5 oz Physical Exam: The patient was seen and examined on the day of discharge. Problem - Problem (1) Acute on chronic diastolic (congestive) heart failure Code(s): I50.33 - ACUTE ON CHRONIC DIASTOLIC (CONGESTIVE) HEART FAILURE Status: Acute (2) Chronic atrial fibrillation Code(s): I48.20 - CHRONIC ATRIAL FIBRILLATION, UNSPECIFIED Status: Acute (3) Bradycardia Code(s): R00.1 - BRADYCARDIA, UNSPECIFIED Status: Acute (4) Hypertension Code(s): I10 - ESSENTIAL (PRIMARY) HYPERTENSION Status: Chronic Plan - Discharge Medications Prescriptions: Potassium Chloride [K-Dur] 20 meq PO DAILY #30 tab Furosemide [Lasix] 40 mg PO 0900,1400 #60 tab Amlodipine [Norvasc] 10 mg PO DAILY #30 tab Metoprolol Succinate [Toprol XL] 25 mg PO 2100 #30 tab Home Medications: Medication Instructions Recorded Confirmed Type Apixaban [Eliquis] 5 mg PO BID 05/19/20 05/19/20 History Atorvastatin Calcium [Lipitor] 40 mg PO DAILY 05/19/20 05/19/20 History Escitalopram Oxalate 20 mg PO DAILY 05/19/20 05/19/20 History Lisinopril 40 mg PO DAILY 05/19/20 05/19/20 History Spironolactone 25 mg PO HS 05/19/20 05/19/20 History Amlodipine [Norvasc] 10 mg PO DAILY #30 tab 05/22/20 Rx Furosemide [Lasix] 40 mg PO 0900,1400 #60 tab 05/22/20 Rx Metoprolol Succinate [Toprol XL] 25 mg PO 2100 #30 tab 05/22/20 Rx Potassium Chloride [K-Dur] 20 meq PO DAILY #30 tab 05/22/20 Rx Allergies: No Known Allergies Allergy (Unverified 05/18/20 16:52) - Follow up Plan Referrals: Isaac Frey MD [Primary Care Provider] - Disposition: HOME Quality - Care Measures CORE MEASURES:: N/A
[2020-05-22 12:05] LABS: Anion Gap 15 mmol/L (10-20); BUN (Urea Nitrogen) 16 mg/dL (8.4-25.7); Calc. Creatinine Clearance 137 mL/min (70-130); Calcium 9.5 mg/dL (7.8-10.44); Carbon Dioxide 29 mmol/L (23-31); Chloride 96 mmol/L (98-107); Glucose 124 mg/dL (83-110); Potassium 3.3 mmol/L (3.5-5.1); Sodium 137 mmol/L (136-145)
== END 2020-05-22 12:27 | disposition home or self-care (01) | DRG 308 ==
LOC: ERS 13:42 → ERHOLD 17:32 → 2NO 05-19 14:48
PROVIDERS: ADMIT Internal Medicine; ATTEND Internal Medicine
PROC: 3E033XZ Introduction of Vasopressor into Peripheral Vein, Percutaneous Approach (ICD-10-PCS; principal; 2020-05-18)
DX: I48.20 Chronic atrial fibrillation, unspecified (principal); I50.33 Acute on chronic diastolic (congestive) heart failure; Z20.822 Contact with and (suspected) exposure to COVID-19; R00.1 Bradycardia, unspecified; I11.0 Hypertensive heart disease with heart failure; E78.5 Hyperlipidemia, unspecified; K21.9 Gastro-esophageal reflux disease without esophagitis; E87.6 Hypokalemia; F32.9 Major depressive disorder, single episode, unspecified; Z86.73 Personal history of transient ischemic attack (TIA), and cerebral infarction without residual deficits; Z87.442 Personal history of urinary calculi; Z79.899 Other long term (current) drug therapy; Z79.01 Long term (current) use of anticoagulants; Z83.49 Family history of other endocrine, nutritional and metabolic diseases
CPT/HCPCS: 36415; 71045; 80048; 80053; 81003; 83735; 83880; 84484; 85025; 87635; 93005; 96365; 96366; 96374; 96375; C9113; J0360; J1250; J1940; J3475; J3480; U0003